=== PATIENT | female | born 1965 | race Caucasian/White ===

== ENCOUNTER 2018-02-20 08:02 | Outpatient (CLI) | payer BC ==
--- NOTE | 2018-02-20 09:53 | ULT ---
ULTRASOUND GALLBLADDER RIGHT UPPER QUADRANT: Date: 02/20/18 HISTORY: Epigastric pain. COMPARISON: None. TECHNIQUE: Real-time Navarro scale and color evaluation of the right upper quadrant of the abdomen was performed. FINDINGS: Visualized portions of pancreas unremarkable. Hepatic echotexture is normal. Liver measures 16.5 cm i n length. Portal vein is patent with antegrade flow. Common bile duct is normal, measuring 4.0 mm. There appears to be diffuse filling of the gallbladder wall with calculi as there is shadowing beyond the anterior wall. Right kidney measures 11.2 x 4.9 x 5.8 cm, without mass, hydronephrosis, or abnormal calcifications. IMPRESSION: Extensive cholelithiasis without acute cholecystitis. Sonographic Luis's sign is negative. POS: WENCESLAOH
== END 2018-02-20 08:03 | disposition home or self-care (01) ==
LOC: SCSULT 08:02
PROVIDERS: ATTEND Internal Medicine Gastroenterology
DX: R10.13 Epigastric pain (principal); K80.00 Calculus of gallbladder with acute cholecystitis without obstruction
CPT/HCPCS: 76705

== ENCOUNTER 2018-03-09 11:25 | Day surgery (SDC) | payer BC ==
[2018-03-07 16:41] VITALS: BMI 37.9
[~2018-03-09 11:25] MED LIST: Dexamethasone 20 MG/5 ML VIAL ONE; Glycopyrrolate 0.2 MG/ML 5 ML SYRINGE ONE; Ketorolac Tromethamine 30 MG/ML VIAL ONE; Lidocaine 1% PF 5 ML VIAL ONE; Ondansetron HCl/PF 4 MG/2 ML Vial ONE; PROPOFOL 200 MG/20 ML VIAL ONE
[2018-03-09] MEDS ORDERED: Scopolamine 1.5 mg/72 hour Patch ONE (12:40)
[2018-03-09] MEDS ORDERED: Levofloxacin 500 mg/D5W 100 ml Premix Bag ONE (13:35)
[2018-03-09] MEDS ORDERED: Fentanyl 100 MCG/2 ML VIAL ONE (13:38)
[2018-03-09] MEDS ORDERED: Promethazine HCl 25 MG/ML VIAL ONE ×2 (13:38→14:57)
[2018-03-09] MEDS ORDERED: HYDROmorphone 0.5 MG/0.5 ML SYRINGE ONE (13:38)
[2018-03-09] MEDS ORDERED: Midazolam HCl 2 mg/2 ml Vial ONE (13:38)
[2018-03-09] MEDS ORDERED: Bupivacaine/Epinephrine 0.25% 30 ML VIAL ONE (13:40)
--- NOTE | 2018-03-09 15:02 | OP ---
DATE OF PROCEDURE: 03/09/2018 PREOPERATIVE DIAGNOSIS: Symptomatic gallstones. POSTOPERATIVE DIAGNOSIS: Symptomatic gallstones. PROCEDURE: Laparoscopic cholecystectomy. SURGEON: Kavon Sutton M.D. ANESTHESIA: General. ESTIMATED BLOOD LOSS: Minimal. COMPLICATIONS: None. SPECIMEN: Gallbladder. FINDINGS: Chronic cholecystitis. PROCEDURE IN DETAIL: The patient was taken to the Operating Room and laid supine on the Operating Saray m table. After general anesthetic was obtained, the abdomen was prepped and draped in a sterile fashi on. A curved incision was made below the umbilicus. Cautery was used to dissect down to the umbilical fascia. Umbilical fascia was incised and held up using a Shawna. The abdominal cavity was entered us ing a Lisa clamp. Holding stitch of Vicryl was placed on each side of the fascia. Garay trocar was placed. High-flow pneumoperitoneum was obtained. An upper midline 5-mm port and two right upper quadr ant 5-mm ports were placed under direct camera visualization. The gallbladder was retracted from the gallbladder fossa. The peritoneum of the gallbladder was opened anteriorly and posteriorly. The criti rimma view triangle was seen showing only the cystic duct and cystic artery branching from medial to la teral. There were no other branching structures. Two clips were placed proximally on the cystic duct and one laterally. It was cut using laparoscopic scissors. The cystic artery was taken in the same wa y. Electrocautery was then used to dissect the gallbladder out of the gallbladder fossa. The gallblad chon was placed in an Endo catch bag and brought out through the Garay. There was no bleeding or bile in the liver bed. The cystic duct stump and cystic artery stump were intact without evidence of extr avasation or bleeding. All port sites were infiltrated using local anesthesia. All ports were removed under camera visualization. Pneumoperitoneum was let down. The Vicryl was used to close the fascial defect below the umbilicus. All incisions were irrigated and closed using 4-0 Monocryl and DermaBond. The patient was en route to Recovery in stable condition. All instrument counts, needle counts and l ap counts were correct.
== END 2018-03-09 16:38 | disposition home or self-care (01) ==
LOC: SDC 11:25
PROVIDERS: ATTEND Surgery
PROC: 0FT44ZZ Resection of Gallbladder, Percutaneous Endoscopic Approach (ICD-10-PCS; principal; 2018-03-09)
DX: K80.10 Calculus of gallbladder with chronic cholecystitis without obstruction (principal); E03.9 Hypothyroidism, unspecified; Z79.899 Other long term (current) drug therapy; Z88.0 Allergy status to penicillin; Z88.2 Allergy status to sulfonamides
CPT/HCPCS: 88304; 96374; J1100; J1170; J1885; J1956; J2001; J2250; J2405; J2550; J2704; J3010